=== PATIENT | female | born 1960 | race Two or more races ===

== ENCOUNTER 2020-09-14 05:19 | Day surgery (SDC) | payer OTHER ==
[~2020-09-14 05:19] MED LIST: ARIMIDEX PO; BUSPAR PO; EFFEXOR XR150 MG PO; JANUVIA50 MG PO; LIPITOR20 MG PO; RESPERDAL PO; VERELAN180 MG PO
== END 2020-09-14 13:05 | disposition home or self-care (01) ==
LOC: CIR.AMB 05:19
PROVIDERS: ATTEND Obstetrics & Gynecology
DX: N95.0 Postmenopausal bleeding (principal); Z20.828 Contact with and (suspected) exposure to other viral communicable diseases

== ENCOUNTER 2021-11-05 09:54 | Emergency (ER) | payer OTHER ==
[~2021-11-05] VITALS: Ht 160 cm; Wt 77.1 kg
[2021-11-05] MEDS ORDERED: ANASTROZOLE1 MG PO (10:12)
[2021-11-05] MEDS ORDERED: JANUVIA100 MG PO (10:12)
[2021-11-05] MEDS ORDERED: RESTORIL30 M1 PO (10:13)
[2021-11-05] MEDS ORDERED: KETO10TA2 PO (15:02)
[2021-11-05] MEDS ORDERED: CLEOCIN HCL300 MG PO (15:02)
[2021-11-05] MEDS ORDERED: VALTREX1000 MG PO (15:02)
== END 2021-11-05 15:55 | disposition home or self-care (01) ==
LOC: ER 09:54
DX: R10.2 Pelvic and perineal pain (principal)

== ENCOUNTER 2023-10-30 05:00 | Day surgery (SDC) | payer OTHER ==
[~2023-10-30 05:00] MED LIST changes: +ANASTROZOLE1 MG PO; +CLEOCIN HCL300 MG PO; +JANUVIA100 MG PO; +KETO10TA2 PO; +RESTORIL30 M1 PO; +VALTREX1000 MG PO
== END 2023-10-30 14:35 | disposition home or self-care (01) ==
LOC: CIR.AMB 05:00
PROVIDERS: ATTEND Obstetrics & Gynecology
DX: N84.0 Polyp of corpus uteri (principal); N95.0 Postmenopausal bleeding; Z20.822 Contact with and (suspected) exposure to COVID-19; Z88.0 Allergy status to penicillin; E11.9 Type 2 diabetes mellitus without complications; E78.5 Hyperlipidemia, unspecified; I10 Essential (primary) hypertension